=== PATIENT | female | born 1995 | race Caucasian/White ===

== ENCOUNTER 2025-01-24 03:06 | Emergency (ER) | payer MEDICAID ==
[~2025-01-24] VITALS: Ht 167.6 cm; Wt 123.4 kg
[2025-01-24 03:06] VITALS: TEMP 97.2
[2025-01-24] MEDS: ONDANSETRON HCL INJ 2MG/ML 2ML 2 MG/ML VIAL IV STA (03:45)
[2025-01-24] MEDS: SODIUM CHLORIDE 0.9% 1000ML 1,000 ML IV STA (03:45)
[2025-01-24 03:46] LABS: BASOPHILS % 0.4 % (0.0-1.0); EOSINOPHILS % 1.4 % (0.0-6.0); LYMPHOCYTES % 20.6 % (18.0-39.1); MONOCYTES % 4.2 % (4.4-11.3); NEUTROPHILS % 73.1 % (38.7-80.0); RED CELL DISTRIBUTION WIDTH 17.4 % (11.7-14.4)
[2025-01-24 04:00] VITALS: PULSE 91; RESP 20
[2025-01-24 04:04] LABS: EST GLOMERULAR FILTRATION RATE 113.0 ML/MIN (>=60)
[2025-01-24] MEDS: Morphine 4mg INJECTION 4 MG/ML INJ IV PRN (05:07)
[2025-01-24] MEDS ORDERED: IOPAMIDOL 370 MG/ML 100 ML INFUS..BTL INJ ONE (05:22)
[2025-01-24] MEDS ORDERED: ONDANSETRON ODT4 MG PO (06:05)
[2025-01-24] MEDS ORDERED: PROTONIX40 MG PO (06:05)
[2025-01-24 06:23] VITALS: BP 124/87; PULSE 69; RESP 20; O2SAT 95
== END 2025-01-24 06:15 | disposition home or self-care (01) ==
LOC: ER 03:12
DX: R10.33 Periumbilical pain (principal); R11.2 Nausea with vomiting, unspecified; I10 Essential (primary) hypertension
CPT/HCPCS: 36415; 74177; 80053; 83690; 84702; 85025; 99284; J2270; J2405; J7030; Q9967